=== PATIENT | female | born 1985 | race Caucasian/White ===

== ENCOUNTER 2017-09-01 22:46 | Emergency (ER) | payer SELFPAY ==
[~2017-09-01] VITALS: Ht 160 cm; Wt 47.6 kg
--- NOTE | 2017-09-01 22:55 | NUR ---
Wade lott in [facility] - 09/01/17 at 2255 by [facility] PT. AMBULATED TO BED 11
[2017-09-01 22:56] VITALS: BP 112/61
--- NOTE | 2017-09-01 23:03 | NUR ---
PT. AMBULATED TO ER JOSE
[2017-09-01] MEDS ORDERED: TETRACAINE HCL/PF 0.5% OPTH 4 ML BTL ONE (23:30)
[2017-09-01] MEDS ORDERED: TETRACAINE HCL/PF 0.5% OPTH 4 ML BTL OP ONE (23:35)
[2017-09-02 01:00] VITALS: BP 103/59
--- NOTE | 2017-09-02 01:00 | NUR ---
Patient discharged with v/s stable. Written and verbal after care instructions given and explained. Patient alert, oriented and verbalized understanding of instructions. Wheel Chair Assisted to car. All questions addressed prior to discharge. ID band removed. Patient advised to follow up with PMD. Rx of Tobradex eye gtts and Ibuprofen given. Patient educated on indication of medication including possible reaction and side effects. Opportunity to ask questions provided and answered.
== END 2017-09-02 01:00 | disposition home or self-care (01) ==
LOC: MED 22:46
DX: H10.219 Acute toxic conjunctivitis, unspecified eye (principal); J45.909 Unspecified asthma, uncomplicated; F41.9 Anxiety disorder, unspecified
CPT/HCPCS: 99283